=== PATIENT | male | born 1950 | race Hispanic/Latino ===

== ENCOUNTER 2021-10-02 12:30 | Day surgery (SDC) | payer OTHER ==
[2021-10-02] MEDS ORDERED: TETRACAINE HCL 0.5% 4ML OPTH ONE ×2 (12:36→13:19)
[2021-10-02] MEDS ORDERED: Ringers Lactate 1,000 ML IV ONE (12:37)
[2021-10-02] MEDS ORDERED: METOCLOPRAMIDE 10 MG/2mL INJ ONE (13:09)
[2021-10-02] MEDS ORDERED: NA CIT/CITRIC AC 30 ML ORAL UDC ONE (13:09)
[2021-10-02] MEDS ORDERED: LIDOCAINE 2% MPF 5 ML VIAL ONE ×2 (13:14→13:38)
[2021-10-02] MEDS ORDERED: propofoL 200 MG/20 ML VIAL IV ONE (13:14)
[2021-10-02] MEDS ORDERED: FENTANYL CITR 100 MCG/2 ML ONE (13:14)
[2021-10-02] MEDS ORDERED: MIDAZOLAM HCL 2 MG/2 ML INJ ONE (13:14)
[2021-10-02] MEDS ORDERED: BSS OPTHALMIC SOL 15 ML BOT OPTH ONE (13:19)
[2021-10-02] MEDS ORDERED: NS 0.9% VIAL 0 ML ONE (13:19)
[2021-10-02] MEDS ORDERED: NEO/POLY/DEX OPTH 3.5 GM TUBE ONE (13:19)
[2021-10-02] MEDS ORDERED: BUPIVACAINE 0.25% PF 10 ML VIAL ONE (13:38)
[2021-10-02 13:44] VITALS: O2SAT 99
[2021-10-02 15:52] VITALS: BP 136/56
[2021-10-02 15:54] VITALS: TEMP 97.9
--- NOTE | 2021-10-02 16:03 | OP ---
Date of Procedure: 10/02/2021 Surgeon: June Dominguez MD Diagnosis: Recurrent pterygium, left eye. Procedure: Pterygium excision with conjunctival autograft, left eye. Anesthesia: LOBO Smalls CRNA, Randolf Dick MD anesthesia for pterygium surgery. Description Of Procedure: The patient was brought to the operative room. He was prepped with Betadine. A lid speculum was placed in the left eye. A pledget of tetracaine was placed in the inferior nasal quadrant. Zuleima scissors were used to create a conjunctival incision at the inferior edge of the pterygium. A 1:1 mixture of 2% Xylocaine and 0.25% bupivacaine was placed around the globe. A Honan balloon was placed on the eye for 2 minutes. The patient was then prepped and draped in the usual sterile fashion for ophthalmic surgery. A conjunctival incision was created at the limbus. Thickened tenons was removed underneath the conjunctiva nasally. The pterygium head was removed with Weck-Diana dissection. A bur was used to smooth the corneal surface. A 12 x 5 mm conjunctival autograft was harvested from the superior conjunctiva. A 7-0 Vicryl traction suture was used in the superior cornea as a traction suture. Tisseel glue was placed on the bare sclera nasally and the autograft was placed over the bare sclera and allowed to dry for 2 minutes. Tisseel glue was used superiorly to reapproximate the superior conjunctiva. Kfm-Fkdf-Acp was placed in the eye. The pterygium tissue was sent to pathology. The eye was patched with a soft cotton patch and Asher metal shield. The patient was returned to day surgery in good condition and is to follow up with Dr. Dominguez tomorrow. NAILA/PELON Voice ID: [id number] Report ID: [id number] MOUSTAPHA
--- NOTE | 2021-10-10 08:56 | DS ---
Date of Discharge: 10/02/2021 He was admitted to day surgery on 10/02/21 for pterygium removal. He was discharged to home in good condition and was to follow up with Dr. Dominguez in the morning. NAILA/PELON Voice ID: [id number] Report ID: [id number] MOUSTAPHA
== END 2021-10-02 15:49 | disposition home or self-care (01) ==
LOC: OR 12:30
PROVIDERS: ATTEND Ophthalmology Retina Specialist
PROC: 08BTXZX Excision of Left Conjunctiva, External Approach, Diagnostic (ICD-10-PCS; principal; 2021-10-02 14:00)
DX: H11.062 Recurrent pterygium of left eye (principal); Z20.822 Contact with and (suspected) exposure to COVID-19
CPT/HCPCS: 88304; 65426; U0002; J2704; J2765; J7120; 88300; J2250; J3010

== ENCOUNTER 2022-01-01 11:52 | Day surgery (SDC) | payer OTHER ==
[2022-01-01] MEDS ORDERED: LIDOCAINE HCL/PF 3.5% OPTH GEL ONE (12:18)
[2022-01-01] MEDS ORDERED: NA CHLORIDE 0.9% 500 ML ONE (12:19)
[2022-01-01] MEDS: CYCLOPENTOLATE 1% OPTH 2 ML ONE ×3 (12:37→12:50)
[2022-01-01] MEDS: PHENYLEPHRINE 2.5% OPTH 2 ML ONE ×3 (12:37→12:50)
[2022-01-01] MEDS ORDERED: EPINEPHRINE/PF 1 MG/ML AMP ONE (12:43)
[2022-01-01] MEDS ORDERED: TOBRADEX 0.3-0.1% OPTH OINTMENT ONE (12:43)
[2022-01-01] MEDS ORDERED: BSS OPTHALMIC SOL 15 ML OPTH ONE (12:43)
[2022-01-01] MEDS ORDERED: BALANCED SALT IRRIG PLAIN 500 ML IRR ONE (12:44)
[2022-01-01] MEDS ORDERED: LIDOCAINE 1% MPF 2 ML AMPULE ONE (12:44)
[2022-01-01] MEDS ORDERED: DUOVISC 1 KIT OPTH ONE (12:44)
[2022-01-01 13:05] VITALS: O2SAT 100
[2022-01-01] MEDS ORDERED: MOXIFLOXACIN HCL 10 DROPS/ML **OR USE OPTH ONE (13:11)
[2022-01-01] MEDS ORDERED: POVIDONE-IODINE 5% EYE DROPS ONE (13:42)
[2022-01-01] MEDS ORDERED: LIDOCAINE HCL/PF 3.5% OPTH GEL OPTH ONE (13:47)
[2022-01-01] MEDS ORDERED: TETRACAINE HCL 0.5% 4ML OPTH ONE (14:01)
[2022-01-01 15:02] VITALS: BP 157/66; TEMP 98.1
--- NOTE | 2022-01-02 01:30 | OP ---
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 Operation Performed: Phacoemulsification with intraocular lens implant, left eye. Anesthesia: Tariq Segovia CRNA and Jose Roberto Jameson M.D. anesthesia for cataract surgery Complications: None. Description Of Procedure: In the operating room the patient was prepped and draped in the usual sterile fashion for ophthalmic surgery. A lid speculum was placed in the left eye. Two paracentesis sites were made superiorly and inferiorly in the limbal cornea. Preservative free lidocaine then Viscoat were placed in the anterior chamber and a keratome was used to enter the anterior chamber. A 360 degree capsulotomy was performed with utrata forceps. The lens was hydrodissected with BSS and rotated freely. The lens was removed with a chop technique. 2.38 phaco CDE was used to remove the lens. Residual cortex was removed with the irrigation and aspiration. Provisc was placed in the capsular bag. A DCB00 +21.5 lens was placed in the capsular bag without complications. Irrigation and aspiration was used to remove residual viscoelastic. The paracentesis sites were hydrated with BSS. The wound and paracentesis sites were inspected and found to be watertight. Vigamox 0.07 cc was placed intracamerally at the end of the procedure. The eye was irrigated with balanced salt solution. The eye was patched with a clear shield. The patient was returned to day surgery in good condition. Discharge Instructions: Mr. Franco is discharged to home in good condition. He is to follow up with Dr. Dominguez in the morning. NAILA/PELON Voice ID: [id number] Report ID: [id number] MOUSTAPHA
== END 2022-01-01 15:15 | disposition home or self-care (01) ==
LOC: OR 11:52
PROVIDERS: ATTEND Ophthalmology Retina Specialist
PROC: 08RK3JZ Replacement of Left Lens with Synthetic Substitute, Percutaneous Approach (ICD-10-PCS; principal; 2022-01-01 13:00)
DX: H25.812 Combined forms of age-related cataract, left eye (principal); Z20.822 Contact with and (suspected) exposure to COVID-19
CPT/HCPCS: 66984; U0003 ×2; J0171; J7040